=== PATIENT | female | born 1980 | race Caucasian/White ===

== ENCOUNTER 2016-09-21 03:18 | Inpatient (IN) | payer MEDICAID ==
[~2016-09-21] VITALS: Ht 154.9 cm; Wt 73.5 kg
[2016-09-21] VITALS (21 sets, daily range): BP systolic 86–118; BP diastolic 47–74; PULSE 54–72; RESP 12–23; TEMP 98.2; Ht 154.9 cm; Wt 73.5 kg
[~2016-09-21 03:18] MED LIST: IBUP-1542 PO
[2016-09-21] MEDS ORDERED: morphine 4 MG/ML VIAL IV STA (04:23)
[2016-09-21] MEDS ORDERED: ONDANSETRON 4 MG INJ IV STA (04:23)
[2016-09-21 04:55] LABS: ADD SCAN DIFF NO
[2016-09-21 05:00] LABS: BASOPHILS % 0.4 % (0.0-2.0); EOSINOPHILS # 0.1 10^3/ul (0.0-0.5); EOSINOPHILS % 1.4 % (0.0-7.0); HEMATOCRIT 38.7 % (37.0-47.0); HEMOGLOBIN 12.7 g/dl (12.0-16.0); LYMPHOCYTES # 3.1 10^3/ul (0.8-2.9); LYMPHOCYTES % 32.5 % (15.0-51.0); MEAN CORPUSCULAR HEMOGLOBIN 29.5 pg (29.0-33.0); MEAN CORPUSCULAR HGB CONC 32.8 g/dl (32.0-37.0); MEAN PLATELET VOLUME 8.9 fl (7.4-10.4); MONOCYTE # 0.6 10^3/ul (0.3-0.9); MONOCYTES % 6.3 % (0.0-11.0); NEUTROPHIL # 5.7 10^3/ul (1.6-7.5); NEUTROPHILS % 59.1 % (39.0-77.0); PLATELET COUNT 307 10^3/UL (140-415); RED CELL DISTRIBUTION WIDTH 12.3 % (11.5-14.5); WHITE BLOOD COUNT 9.6 10^3/ul (4.8-10.8)
[2016-09-21 05:01] LABS: ADD UMIC NO; URINE BILIRUBIN (Dip) NEGATIVE (NEGATIVE); URINE BLOOD (Dip) NEGATIVE (NEGATIVE); URINE COLOR LT. YELLOW (YELLOW); URINE GLUCOSE (Dip) NEGATIVE (NEGATIVE); URINE KETONES (Dip) NEGATIVE (NEGATIVE); URINE LEUKOCYTE ESTERASE (Dip) NEGATIVE (NEGATIVE); URINE NITRITE (Dip) NEGATIVE (NEGATIVE); URINE TOTAL PROTEIN (Dip) NEGATIVE (NEGATIVE); URINE UROBILINOGEN (Dip) 0.2 E.U./dL (0.1-1.0)
--- NOTE | 2016-09-21 05:03 | RADRPT ---
PROCEDURE: ULTRASOUND LIMITED ABDOMEN CLINICAL INDICATION: 35-year-old female with abdominal pain. TECHNIQUE: Multiple sonographic of the right upper quadrant of the abdomen were obtained. The imag es were reviewed on a PACS workstation. COMPARISON: None. FINDINGS: The pancreas is partially visualized and is otherwise without abnormal echogenicity. The liver displays normal echogenicity. The liver measures 14.6 cm in length. No evidence of intrah epatic biliary ductal dilatation is seen. The portal and hepatic veins are unremarkable. The gallbladder contains multiple mobile shadowing stones. The gallbladder wall is mildly thickened measuring 4.1 mm. No pericholecystic fluid is seen. The common bile duct measures 3.6 mm and is not dilated. The right kidney displays normal echogenicity. The right kidney measures 10.0 cm in maximal length. No caliectasis or hydronephrosis is seen. No free fluid is seen. IMPRESSION: Cholelithiasis with mildly thickened gallbladder wall. .Tian Moore MD, MD Date Time Electronically viewed and signed by .Tian Moore MD, on 09/21/2016 05:02 .Arina/
[2016-09-21 05:05] LABS: ALBUMIN 3.7 g/dl (3.3-4.9)
[2016-09-21 05:06] LABS: POTASSIUM 3.7 mmol/L (3.5-5.1)
[2016-09-21 05:08] LABS: ALBUMIN/GLOBULIN RATIO 1.15; BILIRUBIN,INDIRECT 0.1 mg/dl (0-1.1); BILIRUBIN,TOTAL 0.1 mg/dl (0.2-1.3); CREATININE 0.68 mg/dl (0.44-1.00); TOTAL PROTEIN 6.9 g/dl (6.1-8.1)
[2016-09-21 05:09] LABS: CALCIUM 8.7 mg/dl (8.4-10.2); INR 0.86; PROTIME 11.7 Sec (12.2-14.2); PT RATIO 0.9
[2016-09-21 05:10] LABS: PARTIAL THROMBOPLASTIN TIME 24.1 Sec (25.0-35.0)
[2016-09-21] MEDS ORDERED: ONDANSETRON 4 MG INJ IV PRN ×3 (06:30→10:00)
[2016-09-21] MEDS ORDERED: ACETAMINOPHEN 325 MG TAB PO PRN ×2 (06:30→09:30)
--- NOTE | 2016-09-21 06:30 | ERA ---
ER Documentation Chief Complaint Date/Time DATE: 09/21/16 TIME: 06:25 Chief Complaint right upper abd pain x 4 hours. denies vomiting/diarrhea. hx of gallstone HPI 35-year-old previously healthy female with a history of gallstones presenting with right upper quadrant abdominal pain. Pain is burning, aching, radiating to her right flank, 10 out of 10. She has been having intermittent pain for the past 3 days but yesterday it was worse all day long and unrelenting. She has associated nausea without vomiting. No fevers or chills. No associated diarrhea or constipation. ROS All systems reviewed and are negative except as per history of present illness. Medications Home Meds Active Scripts Ibuprofen* (Motrin*) 600 Mg Tab, 600 MG PO Q6H Y for PAIN AND OR ELEVATED TEMP, #30 TAB Prov:TOMMY BOLTON MD 05/01/16 Allergies Allergies: Coded Allergies: No Known Allergy (Unverified , 09/21/16) PMhx/Soc History of Surgery: No Anesthesia Reaction: No Hx Neurological Disorder: No Hx Respiratory Disorders: No Hx Cardiac Disorders: No Hx Psychiatric Problems: No Hx Miscellaneous Medical Probl: No Hx Alcohol Use: No Hx Substance Use: No Hx Tobacco Use: No Smoking Status: Never smoker FmHx Family History: No diabetes Physical Exam Vitals Vital Signs Date Time Temp Pulse Resp B/P Pulse Ox O2 Delivery O2 Flow Rate FiO2 09/21/16 04:59 97.6 65 20 124/78 98 Room Air 09/21/16 03:21 97.8 71 20 136/88 98 Physical Exam Const: Moderate distress secondary to pain Head: Atraumatic Eyes: Normal Conjunctiva ENT: Normal External Ears, Nose and Mouth. Neck: Full range of motion. No meningismus. Resp: Clear to auscultation bilaterally Cardio: Regular rate and rhythm, no murmurs Abd: Soft, right upper quadrant tenderness to palpation, positive Zamora sign , otherwise no rebound or guarding, non distended. Normal bowel sounds Skin: No petechiae or rashes Back: No midline or flank tenderness Ext: No cyanosis, or edema Neur: Awake and alert Psych: Normal Mood and Affect Result Diagram: 09/21/16 0435 09/21/16 0435 Results 24 hrs Laboratory Tests Test 09/21/16 04:35 Activated Partial Thromboplast Time 24.1Sec Alanine Aminotransferase (ALT/SGPT) 135IU/L Albumin 3.7g/dl Albumin/Globulin Ratio 1.15 Alkaline Phosphatase 102IU/L Anion Gap 16 Aspartate Amino Transf (AST/SGOT) 101IU/L Basophils # 0.010^3/ul Basophils % 0.4% Blood Urea Nitrogen 13mg/dl Calcium Level 8.7mg/dl Carbon Dioxide Level 29mmol/L Chloride Level 102mmol/L Creatinine 0.68mg/dl Direct Bilirubin 0.00mg/dl Eosinophils # 0.110^3/ul Eosinophils % 1.4% Globulin 3.20g/dl Glucose Level 88mg/dl Hematocrit 38.7% Hemoglobin 12.7g/dl INR International Normalized Ratio 0.86 Indirect Bilirubin 0.1mg/dl Lipase 187U/L Lymphocytes # 3.110^3/ul Lymphocytes % 32.5% Mean Corpuscular Hemoglobin 29.5pg Mean Corpuscular Hemoglobin Concent 32.8g/dl Mean Corpuscular Volume 90.0fl Mean Platelet Volume 8.9fl Monocytes # 0.610^3/ul Monocytes % 6.3% Neutrophils # 5.710^3/ul Neutrophils % 59.1% Nucleated Red Blood Cells # 0.010^3/ul Nucleated Red Blood Cells % 0.0/100WBC Platelet Count 99224^3/UL Potassium Level 3.7mmol/L Prothrombin Time 11.7Sec Prothrombin Time Ratio 0.9 Red Blood Count 4.3010^6/ul Red Cell Distribution Width 12.3% Sodium Level 143mmol/L Total Bilirubin 0.1mg/dl Total Protein 6.9g/dl Urine Bilirubin NEGATIVE Urine Clarity SLIGHTLY CLOUDY Urine Color LT. YELLOW Urine Glucose NEGATIVE% Urine Hemoglobin NEGATIVE Urine Ketones NEGATIVE Urine Leukocyte Esterase NEGATIVE Urine Nitrite NEGATIVE Urine Specific [place] 1.015 Urine Total Protein NEGATIVE Urine Urobilinogen 0.2 E.U./dL Urine pH 7.5 White Blood Count 9.610^3/ul Current Medications Medications (Trade) Dose Ordered Sig/Sid Route PRN Reason Start Time Stop Time Status Last Admin Dose Admin Morphine Sulfate (morphine) 4 mg ONCE STAT IV 09/21/16 04:23 09/21/16 04:24 DC 09/21/16 04:43 Ondansetron HCl (Zofran Inj) 4 mg ONCE STAT IV 09/21/16 04:23 09/21/16 04:24 DC 09/21/16 04:43 Ondansetron HCl (Zofran Inj) 4 mg BRIDGE ORDER PRN IV NAUSEA AND/OR VOMITING 09/21/16 06:30 09/22/16 06:29 Acetaminophen (Tylenol Tab) 650 mg ER BRIDGE PRN PO MILD PAIN/FEVER 09/21/16 06:30 09/22/16 06:29 Procedures/MDM EMERGENT LABS AND DIAGNOSTIC STUDIES: Lab Results above were reviewed and interpreted by me. Mild elevation in AST and ALT Radiology Results as interpreted by Radiology below were reviewed by Sherry Egan MD: Ultrasound of the right upper quadrant shows mild gallbladder wall thickening without pericholecystic fluid or CBD dilation Initial Nursing notes reviewed. Previous Medical Records requested via the Electronic Health Record. EMERGENCY DEPARTMENT COURSE / MEDICAL DECISION MAKING: Patient is presenting with right upper quadrant pain concerning for cholecystitis versus choledocholithiasis versus symptomatic cholelithiasis. She is afebrile with normal vitals. Her labs were notable for transaminitis without evidence of pancreatitis or biliary obstruction. Her ultrasound did not show acute cholecystitis, however based on my exam, I believe the patient has acute cholecystitis. I gave her morphine for her pain with significant improvement, however she has persistent pain and tenderness. I spoke with Dr. White, the surgeon on-call, who plans to do a laparoscopic cholecystectomy today. I discussed this with the patient and she is amenable to the plan. Accepting Care Team: Current data and ongoing care discussed. Time: Time of admission Primary Provider: Dr. Hughes Consulting: Dr. White with general surgery Outstanding Data: none Departure Diagnosis: Primary Impression: Acute cholecystitis Condition: MARLA Gunderson MD Sep 21, 2016 06:29
[2016-09-21] MEDS ORDERED: SOD CHLORIDE 0.9% 1,000 ML IV SCH (06:55)
[2016-09-21] MEDS ORDERED: GLYCOPYRROLATE 0.4 MG INJ ONE (07:00)
[2016-09-21] MEDS ORDERED: METOCLOPRAMIDE 10 MG INJ IV PRN (07:00)
[2016-09-21] MEDS ORDERED: ACETAMINOPHEN 650 MG SUPP PR PRN (07:00)
[2016-09-21] MEDS ORDERED: NACL 0.9% 3 ML SYG IV SCH (07:00)
[2016-09-21] MEDS ORDERED: LIDOCAINE 1% (MPF) 30 ML INJ ONE (09:10)
[2016-09-21] MEDS ORDERED: BUPIVACAINE 0.25%/EPI (SDV) 30 ML INJ ONE (09:10)
[2016-09-21] MEDS ORDERED: LIDOCAINE 2% (SDV) 5 ML INJ ONE (09:12)
[2016-09-21] MEDS ORDERED: PROPOFOL 60 ML ONE (09:12)
[2016-09-21] MEDS ORDERED: MIDAZOLAM 1 MG/ML 2 ML INJ ONE (09:13)
[2016-09-21] MEDS ORDERED: FENTAnyl 50 MCG/ML VIAL ONE ×2 (09:13→10:05)
[2016-09-21] MEDS ORDERED: morphine 2 MG INJ IV PRN (09:30)
[2016-09-21] MEDS ORDERED: CEFAZOLIN 1 GM INJ ONE (09:33)
[2016-09-21] MEDS ORDERED: ROCURONIUM 50 MG INJ ONE (09:33)
[2016-09-21] MEDS ORDERED: DEXAMETHASONE 4 MG/ML 1 ML INJ ONE (09:33)
[2016-09-21] MEDS ORDERED: ONDANSETRON 4 MG INJ ONE (09:34)
[2016-09-21] MEDS ORDERED: PROPOFOL 20 ML ONE (10:00)
[2016-09-21] MEDS ORDERED: LABETALOL HCL 20MG INJ IV PRN (10:00)
[2016-09-21] MEDS ORDERED: HYDROmorphONE (0.2 MG/ML) 10ML SYG IV PRN ×3 (10:00)
[2016-09-21] MEDS ORDERED: MEPERIDINE 25 MG INJ IV PRN (10:00)
[2016-09-21] MEDS ORDERED: EPHEDrine SULFATE 50 MG/5 ML SYG IV PRN (10:00)
[2016-09-21] MEDS ORDERED: hydrALAzine 20 MG INJ IV PRN (10:00)
[2016-09-21] MEDS ORDERED: OXYCODONE/ACETAMINOPHEN (5/325) TAB PO PRN ×2 (10:00)
[2016-09-21] MEDS ORDERED: FENTAnyl 50 MCG/ML VIAL IV PRN ×3 (10:00)
[2016-09-21] MEDS ORDERED: NEOSTIGMINE 3 MG/3 ML SYRINGE ONE (10:16)
[2016-09-21] MEDS ORDERED: HALOPERIDOL 5 MG INJ ONE (10:17)
[2016-09-21] MEDS: D5-NS + KCL 20 MEQ 1,000 ML IV SCH ×3 (13:17→22:21)
[2016-09-21] MEDS: FAMOTIDINE 20 MG INJ IV SCH ×2 (13:22→20:25)
[2016-09-21] MEDS: OXYCODONE/ACETAMINOPHEN (5/325) TAB PO PRN ×2 (13:24→22:01)
--- NOTE | 2016-09-21 13:28 | CONS ---
DATE OF ADMISSION: 09/21/2016 DATE OF CONSULTATION: 09/21/2016 HISTORY OF PRESENT ILLNESS: Ms. Ramirez is a 35-year-old female with known gallstones and known prior episodes of biliary colic, who presented to the ER at [facility] yesterday w ith a 3-day history of right upper quadrant and epigastric pain. She is having nausea, no emesis. Denies fevers or chills. PAST MEDICAL HISTORY: Noncontributory. PAST SURGICAL HISTORY: None. MEDICATIONS: Ibuprofen. ALLERGIES: NO KNOWN DRUG ALLERGIES. SOCIAL HISTORY: She drinks occasionally. Denies drug use or smoking. PHYSICAL EXAMINATION: GENERAL: She is a well-nourished, well-developed female in no apparent distress. VITAL SIGNS: She is afebrile. Vital signs stable. CHEST: Clear to auscultation bilaterally. HEART: Regular rhythm. ABDOMEN: Soft, nondistended. Some right upper quadrant tenderness. An abdominal ultrasound reveal ed cholelithiasis with a mildly thickened gallbladder wall. LABORATORY DATA: Reveal a white count of 10, hematocrit of 39, platelets of 307. Sodium 143, potas sium 3.7, chloride 102, CO2 29, BUN and creatinine 13 and 0.7, and glucose 88. ASSESSMENT AND PLAN: Ms. Ramirez is a 35-year-old female with recurrent biliary colic. We discu ssed proceeding with surgery on this admission. The patient wished to proceed. I discussed laparos copic, possible open, cholecystectomy, possible cholangiogram with the patient and her . All benefits, risks, alternatives were discussed in detail. All questions were answered, and the patie nt elects to proceed. Dictated By: GLENIS WEBER/WILLIAM Conf#: [id number] DID#: [id number]
[2016-09-21] MEDS: CEFAZOLIN 1 GM/50 ML (PMX) 50 ML IVPB SCH ×2 (15:08→22:20)
[2016-09-21] MEDS: morphine 2 MG INJ IV PRN (17:18)
--- NOTE | 2016-09-21 18:18 | HP ---
DATE OF ADMISSION: 09/21/2016 MANAGER FILE: Serjio White MD CHIEF COMPLAINT: Abdominal pain. HISTORY OF PRESENT ILLNESS: This is a pleasant 35-year-old female with no surgical or past medical history who presents to [facility] secondary to having 3 days of abdominal discomf ort which she explained as a burning, aching, radiating to her right flank. The pain was 10/10, was intermediate about 3 days ago, which has been worsening for the past day. Therefore, she presented to [facility], was accompanied with nausea without any vomiting or diarrhea. Upo n evaluation in the emergency room, abdominal ultrasound was obtained, which showed cholelithiasis w ith mildly thickened gallbladder wall. General surgery was consulted. The patient was started on p ain medication, n.p.o., IV fluid and was taken to OR by general surgery for laparoscopic cholecystec cassie which patient tolerated the procedure well. At this time, the patient is lying in bed comforta leo without any distress. She is awake, alert, oriented. She denies having any discomfort. PAST MEDICAL AND SURGICAL HISTORY: Cholelithiasis. MEDICATIONS: None. SOCIAL HISTORY: Negative x3 for smoking, alcohol, illicit drugs. FAMILY HISTORY: No history of gallstones, kidney stone, cancer, no coronary artery disease. REVIEW OF SYSTEMS: As above per HPI. Positive for abdominal pain, nausea without any vomiting. No chest pain, palpitations, edema, orthopnea. No change in visual acuity, diplopia, photophobia. Po sitive for decreased appetite. No recent travel history. No sick contact. No dysuria, hematuria, urgency, incontinence or any other discomfort. PHYSICAL EXAMINATION: VITAL SIGNS: Temperature 97.8, pulse 54, respiration 23, blood pressure , oxygen saturation 99 % in room air. GENERAL APPEARANCE: The patient is lying in bed comfortably without any distress. She is awake, al ert, oriented. She is able to answer my questions properly. Body habitus is moderately overweight with BMI of 30.6. EYES AND ENT: Conjunctivae and lids are normal. Pupils are normal. Extraocular movements normal. Hearing grossly normal. Lips appear normal. Oral mucosa is moist. NECK: Supple. Trachea is midline. No lymphadenopathy. RESPIRATORY: Respiratory effort is normal. Clear to auscultation bilaterally. CARDIOVASCULAR: Normal S1, S2. Regular rhythm and rate. No murmur, no bruits, no edema. Peripher al pulses, radial pulses palpable. Cap refill is normal. CHEST: Normal expansion of thorax during inspiration. GASTROINTESTINAL: Abdomen is soft. Surgical site is dry and clean and nontender at the surgical si te. Bowel sounds are hypoactive at this time. EXTREMITIES: Upper and lower extremities within normal limits. Full range of motion. NEUROLOGIC: Cranial nerves II through XII are grossly intact. PSYCHIATRIC: Normal judgment and insight. Alert and oriented x3. Mood and affect are normal. LABORATORY WORK: WBC 9.6, hemoglobin 12.7, hematocrit 38.7, platelets 307. Sodium 143, potassium 3 .7, chloride 102, bicarbonate 29, BUN 13, creatinine 0.68, glucose 88, AST 101, ALT 135. ASSESSMENT AND PLAN: 1. Acute cholecystitis. The patient is status post laparoscopic cholecystectomy, has been planned on IV fluid, pain medication. Continue postsurgical care. Follow up liver function tests in a.m. I will place the patient on Ancef for the next 24 hours. 2. For deep venous thrombosis prophylaxis, on Lovenox, and for gastrointestinal prophylaxis, on Pep angelika. 3. We will continue to monitor patient closely. Further recommendations, management and treatment as per clinical course. Total amount of time that was spent for evaluation of this patient and admission workup was 40 minut es. Dictated By: KHUSHBU PEREYRA MD PN/NTS Conf#: [id number] DID#: [id number]
[2016-09-21] MEDS: ONDANSETRON 4 MG INJ IV PRN (19:06)
[2016-09-22 00:25] VITALS: BP 102/68; PULSE 69; RESP 18
[2016-09-22] MEDS: morphine 2 MG INJ IV PRN (01:59)
[2016-09-22 05:30] VITALS: BP 97/61; PULSE 65; RESP 18
[2016-09-22] MEDS: CEFAZOLIN 1 GM/50 ML (PMX) 50 ML IVPB SCH ×2 (05:41→14:37)
[2016-09-22 05:44] LABS: ADD SCAN DIFF NO
[2016-09-22 05:50] LABS: BASOPHILS % 0.2 % (0.0-2.0); HEMATOCRIT 35.2 % (37.0-47.0); LYMPHOCYTES # 1.5 10^3/ul (0.8-2.9); LYMPHOCYTES % 11.1 % (15.0-51.0); MEAN CORPUSCULAR HEMOGLOBIN 30.2 pg (29.0-33.0); MEAN CORPUSCULAR HGB CONC 34.1 g/dl (32.0-37.0); MEAN CORPUSCULAR VOLUME 88.7 fl (82.0-101.0); MEAN PLATELET VOLUME 9.3 fl (7.4-10.4); MONOCYTE # 0.7 10^3/ul (0.3-0.9); MONOCYTES % 5.6 % (0.0-11.0); NEUTROPHIL # 10.9 10^3/ul (1.6-7.5); NEUTROPHILS % 82.6 % (39.0-77.0); PLATELET COUNT 305 10^3/UL (140-415); RED BLOOD COUNT 3.97 10^6/ul (4.20-5.40); RED CELL DISTRIBUTION WIDTH 12.1 % (11.5-14.5); WHITE BLOOD COUNT 13.1 10^3/ul (4.8-10.8)
[2016-09-22 06:04] LABS: ALBUMIN 3.2 g/dl (3.3-4.9)
[2016-09-22 06:05] LABS: POTASSIUM 4.2 mmol/L (3.5-5.1)
[2016-09-22 06:07] LABS: ALBUMIN/GLOBULIN RATIO 1.23; BILIRUBIN,INDIRECT 0.1 mg/dl (0-1.1); BILIRUBIN,TOTAL 0.1 mg/dl (0.2-1.3); CREATININE 0.54 mg/dl (0.44-1.00); TOTAL PROTEIN 5.8 g/dl (6.1-8.1)
[2016-09-22 06:08] LABS: CALCIUM 8.1 mg/dl (8.4-10.2)
[2016-09-22] MEDS ORDERED: ENOXAPARIN 40 MG/0.4 ML SYG SC SCH (07:00)
[2016-09-22 07:43] VITALS: BP 92/58; RESP 16
[2016-09-22] MEDS: OXYCODONE/ACETAMINOPHEN (5/325) TAB PO PRN (09:20)
[2016-09-22] MEDS: FAMOTIDINE 20 MG INJ IV SCH (09:20)
--- NOTE | 2016-09-22 10:24 | PDOCDIS ---
Discharge Instructions CONDITION Patient Condition: Good HOME CARE INSTRUCTIONS: Diet Instructions: Reduced CalorieSpecial Diet: CARB CONTROLED DIET ACTIVITY: Activity Restrictions: Slowly Increase Activity Rest between Activity Avoid heavy lifting FOLLOW UP/APPOINTMENTS Appointments Follow-up with general surgeon in 1 week KHUSHBU PEREYRA MD Sep 22, 2016 10:24
[2016-09-22] MEDS ORDERED: ONDA4TAB8 PO (10:31)
[2016-09-22] MEDS ORDERED: Oxycodone/Acetamin (5/325) PO (10:31)
[2016-09-22] MEDS ORDERED: AMOX1TAB10 PO (10:31)
[2016-09-22] MEDS ORDERED: FAMO20TA18 PO (10:31)
--- NOTE | 2016-09-22 13:24 | OPR ---
DATE OF OPERATION: 09/21/2016 PREOPERATIVE DIAGNOSIS: Cholelithiasis. POSTOPERATIVE DIAGNOSIS: Acute cholecystitis. PROCEDURE: Laparoscopic cholecystectomy. SURGEON: Glenis White MD RELAY RECORD CLERK: None. ANESTHESIA: General endotracheal. ANESTHESIOLOGIST: Dr. Haskins. ESTIMATED BLOOD LOSS: Minimal. COMPLICATIONS: None. SPECIMENS: Gallbladder. FINDINGS: Gallbladder consistent with acute cholecystitis. INDICATIONS: Ms. Ramirez is a 35-year-old female with recurrent attacks of recurrent gallbladder episodes of biliary colic. She has been told in the past to have her gallbladder out. She present ed to the ER with a 4-day history of right upper quadrant pain, nausea, vomiting, and an ultrasound revealing cholelithiasis with a mildly thickened gallbladder wall. I discussed with her proceeding with surgery versus watchful waiting. Patient wished to proceed, and we discussed laparoscopic, pos sible open, cholecystectomy, possible cholangiogram. All benefits, risks, and alternatives were dis cussed in detail. Questions answered. The patient elected to proceed. DESCRIPTION OF PROCEDURE: Patient was brought to the operating room and placed supine on the table. After preoperative antibiotics and SCDs were placed, the patient was intubated, and the abdomen wa s cleaned, prepped, and draped in sterile fashion. All incisions were infiltrated with 1% lidocaine with epinephrine Marcaine prior to incision. An 11-mm incision was made in the umbilicus. Using a 5-mm laparoscope containing trocar, the abdome n was entered under direct vision and insufflated to 15 mmHg CO2. The following trocars were then p laced under direct vision: Right lower quadrant 5 mm, right upper quadrant 5 mm, subxiphoid 5 mm. The 5-mm umbilical trocar was exchanged for an 11 mm under direct vision. The gallbladder was grasp ed at the fundus and retracted over the liver. There were some omental adhesions, which were taken down with electrocautery, and I was able to dissect out until I identified Syeda's pouch. Hartma nn's pouch was retracted laterally. The gallbladder was distended and thickened consistent with acu te cholecystitis. I scored the peritoneum on the Syeda's, was able to dissect out and skeletoniz e the cystic duct and artery. Both duct and artery were identified. At this point, I had my critic al view of safety where I saw my duct and artery with no intervening structures. The duct and arter y were both clipped twice proximally and once distally and divided. The gallbladder was then remove d from the gallbladder fossa, placed in EndoCatch bag, and removed from the 12-mm trocar site. Ther e was some slight oozing in the gallbladder bed, which was from a posterior artery. This was contro lled with clips. At this point, I visualized the gallbladder fossa. It was hemostatic. There was n o evidence of bleeding or bile staining. I then desufflated the abdomen, removed all trocars. The fascia of the 12-mm trocar site was closed with 0 Vicryl. Skin incisions were all closed with 4-0 M onocryl, Mastisol, Steri-Strips. A 2 x 2 gauze and Tegaderm was placed over the umbilical incision only. Patient tolerated procedure well, was extubated in the OR, and transferred to the recovery room in s table condition. Dictated By: GLENIS WEBER/WILLIAM Conf#: [id number] DID#: [id number]
--- NOTE | 2016-09-22 13:34 | DS ---
DATE OF ADMISSION: 09/21/2016 DATE OF DISCHARGE: 09/22/2016 BODY SHOP FLOORPERSON: Dr. Serjio White PROCEDURE: Laparoscopic cholecystectomy. DISCHARGE DIAGNOSIS: Acute cholecystitis. Patient is status post laparoscopic cholecystectomy. Wa s treated with Ancef. Was discharged on Augmentin. MEDICATIONS: 1. Augmentin. 2. Pepcid. 3. Zofran. 4. Percocet. ALLERGIES: NO KNOWN DRUG ALLERGIES. HOSPITAL COURSE: This is a pleasant 35-year-old female with no significant past medical history, wh o presented to [facility] having 3 days of abdominal discomfort in mid epigastric right upper quadrant, which has been getting progressively worse. Upon arrival to ER, patient had a n abdominal ultrasound, which demonstrated cholelithiasis with a mildly thickened gallbladder wall w ith no evidence of intrahepatic biliary duct dilation. The portal and hepatic veins were unremarkab le. Patient was made n.p.o. IV fluid, pain medication was initiated. Was seen and evaluated by [facility] surgery, and after discussing mode of treatment and discussing the risks and benefits of the diop rgery, signed a consent. Patient was taken to OR for laparoscopic cholecystectomy. The patient vicky erated the procedure well and was taken to recovery room, and was admitted to med/surg where she was started on a clear liquid diet, continue IV fluids, pain medication, IV antibiotics. This morning, patient denies having any chest pain, shortness of breath, nausea, vomiting, diarrhea. Minimal abd ominal discomfort. The surgical site is dry and clean. No evidence of bleeding. LABS: WBC 13.1, hemoglobin 12, hematocrit 35.2, platelets 305. Sodium 140, potassium 4.2, chloride 104, bicarbonate 25, BUN 7, creatinine 0.54, glucose 116, calcium 8.1, magnesium 2.0. AST 107, ALT 160, alkaline phosphatase 88. Patient at this time has been able to tolerate oral intake, and ambu darryl without any difficulty, able to care for herself at outpatient. At this time, patient is med ically stable to be discharged home after evaluation by general surgery. Dictated By: KHUSHBU PEREYRA MD PN/NTS Conf#: [id number] DID#: [id number]
[2016-09-22] MEDS: ONDANSETRON 4 MG INJ IV PRN (14:55)
[2016-09-22] MEDS ORDERED: FAMOTIDINE 20 MG TAB PO SCH (21:00)
== END 2016-09-22 18:45 | disposition home or self-care (01) | DRG 419 ==
LOC: E/R 03:18 → MS1 06:13
PROVIDERS: ADMIT Family Medicine; ATTEND Family Medicine
PROC: 0FT44ZZ Resection of Gallbladder, Percutaneous Endoscopic Approach (ICD-10-PCS; principal; 2016-09-21 09:00)
DX: K80.00 Calculus of gallbladder with acute cholecystitis without obstruction (principal)
CPT/HCPCS: 36415; 76705; 80053; 81003; 83690; 83735; 85025; 85610; 85730; 88304; 96374; 96375; J0690; J1100; J1170; J1630; J1650; J2175; J2250; J2270; J2405; J2710; J3010; J3480; J7030

== ENCOUNTER 2017-09-04 09:59 | Emergency (ER) | END 2017-09-04 11:00 | disposition home or self-care (01) ==

== ENCOUNTER 2017-10-17 12:17 | Emergency (ER) | END 2017-10-17 17:51 | disposition home or self-care (01) ==